=== PATIENT | male | born 1960 | race Caucasian/White ===

== ENCOUNTER 2019-04-05 07:17 | Day surgery (SDC) | payer OTHER ==
[~2019-04-05] VITALS: Ht 180.3 cm; Wt 89.3 kg
[2019-04-05 07:35] VITALS: BP 117/78; PULSE 76; TEMP 97.5
[2019-04-05] MEDS ORDERED: ACIPHEX20 MG PO (07:39)
[2019-04-05 09:00] VITALS: BP 123/80; PULSE 85; TEMP 97
--- NOTE | 2019-04-05 09:00 | NUR ---
Patient brought back to [facility]. Alert and oriented, ambulated to chair without difficulty. Vital signs stable. Denies any nausea or pain. States he would just a water at this time. at bedside. Call [place] within reach, will continue to monitor.
[2019-04-05 09:15] VITALS: BP 105/82; PULSE 72
--- NOTE | 2019-04-05 09:25 | NUR ---
Discharge instructions reviewed with patient and Sammy. All questions answered. Ambulated to lobby. To be driven home by .
[2019-04-05 09:30] VITALS: BP 124/78; PULSE 72
--- NOTE | 2019-04-05 09:30 | NUR ---
Patient states he is ready to go home. Tolerating drink well. Vital signs stable. Discharge instructions reviewed with patient and . Verbalized understanding. IV removed per orders, tolerated well. To get dressed at this time, will continue to monitor.
--- NOTE | 2019-04-05 09:50 | NUR ---
Patient brought down to lobby via wheel chair. To be driven home by Felisa.
[2019-04-05 16:08] VITALS: BP 141/77; PULSE 77
== END 2019-04-05 09:50 | disposition home or self-care (01) ==
LOC: SDCO 07:17
DX: Z12.11 Encounter for screening for malignant neoplasm of colon (principal); Z86.010 Personal history of colon polyps; K22.2 Esophageal obstruction; K44.9 Diaphragmatic hernia without obstruction or gangrene; K21.9 Gastro-esophageal reflux disease without esophagitis
CPT/HCPCS: C1726; J2250; J2405; J3010; J7030

== ENCOUNTER → 2020-07-20 | Outpatient (CLI) | payer OTHER ==
[~2020-07-20] MED LIST: ACIPHEX20 MG PO
== END ==
LOC: COL.RAD 07:53
DX: K43.9 Ventral hernia without obstruction or gangrene (principal)

== ENCOUNTER 2020-08-04 05:26 | Day surgery (SDC) | payer OTHER ==
[~2020-08-04] VITALS: Ht 180.3 cm; Wt 93.2 kg
[2020-08-04 05:42] VITALS: BP 136/73; PULSE 75; TEMP 98.2
[2020-08-04] MEDS ORDERED: MOBIC15 MG PO (05:44)
[2020-08-04 08:25] VITALS: BP 118/53; PULSE 70; TEMP 97.3
--- NOTE | 2020-08-04 08:25 | NUR ---
The patient arrived back to [facility] from the operating room at this time. The patient appears alert and oriented and denies any pain or nausea at this time. The patient requests to try some water at this time. The patient's post operative vital signs were started at this time. The patient has a dressing to his right groin that appears clean, dry and intact. Call light is within reach. The patient denies any further needs at this time. Will continue to monitor the patient.
[2020-08-04] MEDS ORDERED: NORCO 325 MG-51 TAB PO (08:26)
[2020-08-04 08:40] VITALS: BP 85/52; PULSE 63
--- NOTE | 2020-08-04 08:40 | NUR ---
The patient appears to be resting comfortably on the cart. The patient appears to be tolerating the water well and denies wanting anything further to eat or drink at this time. Vital signs appear stable. Call light remains within reach. Will continue to monitor the patient.
[2020-08-04 08:55] VITALS: BP 103/52; PULSE 60
--- NOTE | 2020-08-04 09:00 | NUR ---
The patient was given a PRN dose of [place] one tab at this time. The patient wanted to take a pain pill prior to discharge. Will continue to monitor the patient.
[2020-08-04 09:10] VITALS: BP 119/69; PULSE 58
--- NOTE | 2020-08-04 09:10 | NUR ---
The patient's IV to his left hand was removed and pressure dressing was applied to the site. The nurse instructed the patient to get dressed and notify the staff when he is ready to review his discharge paperwork.
--- NOTE | 2020-08-04 09:20 | NUR ---
Discharge instructions were reviewed with the patient at this time. He verbalized understanding and has no questions for the nurse at this time. The patient is dressed and ready to be escorted out.
--- NOTE | 2020-08-04 09:30 | NUR ---
The patient was escorted out via wheelchair to a private vehicle by KAYLA Zarate. The patient's belongings and discharge paperwork were sent with him. The patient's son is coming to pick him up and drive him home.
== END 2020-08-04 09:30 | disposition home or self-care (01) ==
LOC: SDCO 05:26
DX: K40.90 Unilateral inguinal hernia, without obstruction or gangrene, not specified as recurrent (principal); K21.9 Gastro-esophageal reflux disease without esophagitis; Z20.828 Contact with and (suspected) exposure to other viral communicable diseases
CPT/HCPCS: C1781; J0690; J1100; J1885; J2405; J2704; J3010; J7120

== ENCOUNTER → 2022-03-04 | Outpatient (CLI) | payer OTHER ==
[~2022-03-04] MED LIST changes: +MOBIC15 MG PO; +NORCO 325 MG-51 TAB PO
== END ==
LOC: COL.RAD 07:08
DX: M75.122 Complete rotator cuff tear or rupture of left shoulder, not specified as traumatic (principal); S46.912A Strain of unspecified muscle, fascia and tendon at shoulder and upper arm level, left arm, initial encounter; M19.041 Primary osteoarthritis, right hand; M19.012 Primary osteoarthritis, left shoulder; X58.XXXA Exposure to other specified factors, initial encounter
CPT/HCPCS: A9575